=== PATIENT | female | born 1980 | race Caucasian/White ===

== ENCOUNTER 2017-12-22 11:46 | Emergency (ER) | payer BC, OTHER ==
[2016-08-07 19:30] VITALS: Wt 74.8 kg
[~2017-12-22 11:46] MED LIST: ACET-1966 PO; DIAZ-308 PO; FAMO20TA28 PO; IBUP800T37 PO; MULT-1335 PO; NIFE-15 PO; PER PO; PREN-127 PO
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
[2017-12-22] MEDS ORDERED: SERT-173 PO (12:04)
--- NOTE | 2017-12-22 13:01 | RADIOLOGY IMAGING REPORT ---
FACILITY: [facility] PATIENT NAME: Rosemarie Walker : 1980 MR: [id number] V: [id number] EXAM DATE: ORDERING PHYSICIAN: OSITO MARLEY TECHNOLOGIST: Location: [facility] Patient: Rosemarie Walker : 1980 Visit/Account:[id number] Date of Sevice: 12/22/2017 HEAD W/O CONTRAST, C-SPINE W/O CONTRAST CT BRAIN WITHOUT CONTRAST CLINICAL INDICATION: fall off horse, possilbe loc, headache COMPARISON: No priors TECHNIQUE: Contiguous axial CT images of the brain and cervical spine were obtained without IV contra st. Sagittal and coronal reformatted images were also performed. One of the following dose optimization techniques was utilized in the performance of this exam: Autom ated exposure control; adjustment of the mA and/or kV according to the patient's size; or use of an i terative reconstruction technique. Specific details can be referenced in the facility's radiology C T exam operational policy. FINDINGS: BRAIN: BRAIN:The ventricles are symmetric and normal in size. The brain parenchyma appears normal. The bra instem and cerebellum appear normal. The durand-white matter differentiation is preserved and the basil ar cisterns appear normal. There is no mass, acute infarct, hemorrhage or shift of midline. PARANASAL SINUSES & MASTOIDS: Well aerated. SKULL BASE & CRANIUM: Visualized osseous structures are intact. SOFT TISSUES: No soft tissue swelling or hematoma is appreciated. CERVICAL SPINE: Alignment: Straightening of the normal cervical lordosis. Cranio-cervical junction: Negative. Vertebral bodies: Negative. Posterior elements: Negative. Hardware: None. Disc Spaces: Negative. Soft tissues: Negative. Visualized upper chest: Negative. IMPRESSION 1. No acute findings. 2. Straightening of the normal cervical lordosis which is typically related to positioning and/or spa sm Report Dictated By: Adrián Acosta MD at 12/22/2017 12:54 PM Report E-Signed By: Adrián Acosta MD at 12/22/2017 12:58 PM WSN:[id number]
--- NOTE | 2017-12-22 13:01 | RADIOLOGY IMAGING REPORT ---
[place] [facility] [place] NAME: Rosemarie Walker : 1980 MR: [id number] V: [id number] EXAM DATE: ORDERING PHYSICIAN: OSITO MARLEY TECHNOLOGIST: Location: [facility] [place] Patient: Rosemarie Walker : 1980 Visit/Account:[id number] Date of Sevice: 12/22/2017 HEAD W/O CONTRAST, C-SPINE W/O CONTRAST CT BRAIN WITHOUT CONTRAST CLINICAL INDICATION: fall off horse, possilbe loc, headache COMPARISON: No priors TECHNIQUE: Contiguous axial CT images of the brain and cervical spine were obtained without IV contra st. Sagittal and coronal reformatted images were also performed. One of the following dose optimization techniques was utilized in the performance of this exam: Autom ated exposure control; adjustment of the mA and/or kV according to the patient's size; or use of an i terative reconstruction technique. Specific details can be referenced in the facility's radiology C T exam operational policy. FINDINGS: BRAIN: BRAIN:The ventricles are symmetric and normal in size. The brain parenchyma appears normal. The bra instem and cerebellum appear normal. The durand-white matter differentiation is preserved and the basil ar cisterns appear normal. There is no mass, acute infarct, hemorrhage or shift of midline. PARANASAL SINUSES & MASTOIDS: Well aerated. SKULL BASE & CRANIUM: Visualized osseous structures are intact. SOFT TISSUES: No soft tissue swelling or hematoma is appreciated. CERVICAL SPINE: Alignment: Straightening of the normal cervical lordosis. Cranio-cervical junction: Negative. Vertebral bodies: Negative. Posterior elements: Negative. Hardware: None. Disc Spaces: Negative. Soft tissues: Negative. Visualized upper chest: Negative. IMPRESSION 1. No acute findings. 2. Straightening of the normal cervical lordosis which is typically related to positioning and/or spa sm Report Dictated By: Adrián Acosta MD at 12/22/2017 12:54 PM Report E-Signed By: Adrián Acosta MD at 12/22/2017 12:58 PM WSN:[id number]
[2017-12-22 13:07] VITALS: BP 120/99
== END 2017-12-22 13:21 | disposition home or self-care (01) ==
LOC: ER 11:49
DX: S06.0X9A Concussion with loss of consciousness of unspecified duration, initial encounter (principal); V80.010A Animal-rider injured by fall from or being thrown from horse in noncollision accident, initial encounter; M54.5 Low back pain
CPT/HCPCS: 70450; 72125; 81025; 99284

== ENCOUNTER → 2018-06-28 | Outpatient (CLI) | payer BC ==
[2016-08-07 19:30] VITALS: BMI 31.8
[~2018-06-28] MED LIST changes: +SERT-173 PO
== END ==
LOC: LAB 18:38
PROVIDERS: ATTEND Obstetrics & Gynecology
DX: N92.6 Irregular menstruation, unspecified (principal)
CPT/HCPCS: 36415; 82670; 83001; 83002; 83520; 84146

== ENCOUNTER → 2018-08-18 | Outpatient (CLI) | payer BC ==
[2016-08-07 19:30] VITALS: BMI 31.8
== END ==
LOC: LAB 16:21
PROVIDERS: ATTEND Nurse Practitioner Family
DX: Z31.41 Encounter for fertility testing (principal)
CPT/HCPCS: 36415; 82670; 84144